=== PATIENT | female | born 1965 | race Caucasian/White ===

== ENCOUNTER 2016-10-04 20:31 | Emergency (ER) | payer MEDICAID, OTHER ==
[~2016-10-04] VITALS: Ht 165.1 cm; Wt 72.0 kg
[2016-10-04 20:35] VITALS: BP 140/92
== END 2016-10-04 23:22 | disposition left against medical advice (07) ==
LOC: ER 21:08
DX: F41.9 Anxiety disorder, unspecified (principal); Z53.21 Procedure and treatment not carried out due to patient leaving prior to being seen by health care provider

== ENCOUNTER 2019-02-22 01:58 | Emergency (ER) | payer MEDICAID ==
[~2019-02-22] VITALS: Ht 165.1 cm; Wt 68.0 kg
[2019-02-22 03:11] LABS: BASOPHILS % 0.8 % (0.0-2.0); EOSINOPHILS % 3.8 % (0.0-5.0); HEMATOCRIT. 36.3 % (36.0-48.0); HEMOGLOBIN. 12.4 g/dL (12.0-16.0); LYMPHOCYTES % 34.7 % (20.0-50.0); MEAN CORPUSCULAR HEMOGLOBIN 31.2 pg (28.0-32.0); MEAN CORPUSCULAR VOLUME 91.2 fL (81.0-99.0); MONOCYTES % 9.9 % (2.0-8.0); NEUTROPHILS % 50.8 % (40.0-76.0); PLATELET 325 x1000/uL (130-400); RED BLOOD CELL COUNT 3.98 mill/uL (4.2-5.4); RED CELL DISTRIBUTION WIDTH 13.3 % (11.6-14.6)
[2019-02-22 03:16] LABS: CLARITY URINE CLEAR (CLEAR); COLOR URINE YELLOW (YELLOW); KETONES URINE NEGATIVE (NEGATIVE); LEUKOCYTE ESTERASE URINE 3+ (NEGATIVE); NITRITE URINE NEGATIVE (NEGATIVE); OCCULT BLOOD URINE NEGATIVE (NEGATIVE); PROTEIN URINE 1+ (NEGATIVE); SPECIFIC GRAVITY URINE 1.007 (1.005-1.030); UROBILINOGEN URINE 0.2 E.U./dL (0.2-1.0)
[2019-02-22 03:19] LABS: CHLORIDE 109 mEq/L (98-107)
[2019-02-22] MEDS ORDERED: KETOROLAC 15MG/ML VIAL IV SCH (03:45)
[2019-02-22 06:51] VITALS: BP 147/73
== END 2019-02-22 06:52 | disposition home or self-care (01) ==
LOC: ER 01:58
DX: R07.89 Other chest pain (principal); R00.2 Palpitations
CPT/HCPCS: 36415; 71045; 80053; 81003; 81025; 83880; 84484; 85025; 93005; 96374; 99284; J1885; Z7610

== ENCOUNTER 2019-07-23 22:01 | Emergency (ER) | payer MEDICAID ==
[~2019-07-23] VITALS: Ht 160 cm; Wt 72.0 kg
[2019-07-23 22:50] LABS: BASOPHILS % 0.6 % (0.0-2.0); EOSINOPHILS % 3.7 % (0.0-5.0); HEMATOCRIT. 40.8 % (36.0-48.0); HEMOGLOBIN. 14.1 g/dL (12.0-16.0); LYMPHOCYTES % 42.5 % (20.0-50.0); MEAN CORPUSCULAR HEMOGLOBIN 31.6 pg (28.0-32.0); MEAN CORPUSCULAR VOLUME 91.2 fL (81.0-99.0); MEAN PLATELET VOLUME 8.4 fl (7.4-10.4); MONOCYTES % 9.6 % (2.0-8.0); NEUTROPHILS % 43.6 % (40.0-76.0); PLATELET 371 x1000/uL (130-400); RED BLOOD CELL COUNT 4.48 mill/uL (4.2-5.4); RED CELL DISTRIBUTION WIDTH 13.1 % (11.6-14.6)
[2019-07-23 22:57] LABS: CHLORIDE 106 mEq/L (98-107)
[2019-07-24 03:40] VITALS: BP 121/76
== END 2019-07-24 03:46 | disposition home or self-care (01) ==
LOC: ER 22:01
DX: R07.89 Other chest pain (principal); F41.9 Anxiety disorder, unspecified; I10 Essential (primary) hypertension
CPT/HCPCS: 36415; 71045; 80053; 83880; 84484; 85025; 93005; 99285